=== PATIENT | female | born 1975 | race Caucasian/White ===

== ENCOUNTER 2016-09-01 19:43 | Emergency (ER) | payer OTHER ==
[~2016-09-01] VITALS: Ht 170.2 cm; Wt 65.8 kg
[2016-09-01 20:02] VITALS: BP 141/94
--- NOTE | 2016-09-01 20:23 | ED UPPER/LOWER EXTREMITY COMPL ---
History of Present Illness General Chief Complaint: Laceration Procedure Stated Complaint: L LEG LACERATION Source: patient Exam Limitations: no limitations Vital Signs & Intake/Output Vital Signs & Intake/Output Vital Signs Date Time Temp Pulse Resp B/P B/P Pulse O2 O2 Flow FiO2 Mean Ox Delivery Rate 09/01 2001 97.9 94 18 141/94 100 Room Air ED Intake and Output 09/02 0000 09/01 1200 Intake Total Output Total Balance Patient 145 lb Weight Weight Reported by Patient Measurement Method Allergies Coded Allergies: No Known Allergies (09/01/16) Reconcile Medications Cephalexin (Keflex) 500 MG CAPSULE 1 CAP PO TID wound prophylaxis Triage Note: PT TO ED FOR SMALL PUNCTURE/AVULSION TO L DUMONT. UNSURE OF LAST TETANUS. Triage Nurses Notes Reviewed? yes : No Patient currently breastfeeds: No HPI: Patient is a 41-year-old female presents complaining of puncture wound to her left anterior leg. Patient was using a lawnmower part of the lawnmower struck her pants and punctured her skin. Pants remained intact. Injury occurred this evening. Pain is a burning sensation currently mild, worsens with palpation. Patient is unsure of her most recent tetanus immunization. Denies numbness or decreased range of motion. (BRITNEY MOURA) Past History Travel History Traveled to [place] past 21 day No Medical History Any Pertinent Medical History? none Neurological: NONE EENT: NONE Cardiovascular: NONE Respiratory: NONE Gastrointestinal: NONE Hepatic: NONE Renal: NONE Musculoskeletal: NONE Psychiatric: NONE Endocrine: NONE Blood Disorders: NONE Cancer(s): NONE Surgical History Surgical History: non-contributory Psychosocial History What is your primary language Vietnamese Tobacco Use: Never used ETOH Use: denies use Illicit Drug Use: denies illicit drug use Family History Hx Contributory? No (BRITNEY MOURA) Review of Systems Review of Systems Constitutional: Reports: no symptoms. Musculoskeletal: Reports: see HPI. Skin: Reports: see HPI. Neurological/Psychological: Denies: numbness, paresthesia. Hematologic/Endocrine: Reports: bleeding (from wound, resolved). Immunological: Reports: no symptoms. (BRITNEY MOURA) Physical Exam Physical Exam General Appearance: well developed/nourished, alert, awake Head: atraumatic, normal appearance Eyes: Bilateral: normal appearance. Ears, Nose, Throat: hearing grossly normal Neck: normal inspection, supple, full range of motion Cardiovascular/Respiratory: no respiratory distress Back: normal inspection, vertebral tenderness Leg Left: 1.5 cm puncture wound to left mid anterior leg. Adipose tissue protruding from wound. No bony tenderness. Knee Left: normal range of motion, normal inspection Neurologic/Tendon: normal sensation, normal motor functions, normal tendon functions Skin: warm/dry (BRITNEY MOURA) Progress Differential Diagnosis: puncture wound, foreign body Plan of Care: Wound prepped with betadine. Irrigated with 300 ml of sterile water with a small amount of betadine. Xeroform dressing placed. (BRITNEY MOURA) Departure Departure Time of Disposition: 2040 Disposition: HOME OR SELF CARE Condition: Stable Clinical Impression Primary Impression: Puncture wound of leg excluding thigh Qualifiers: Encounter type: initial encounter Laterality: left Qualified Code: S81.832A - Puncture wound without foreign body, left lower leg, initial encounter Referrals: UNKNOWN (PCP/Family) Additional Instructions: Change the dressing daily. Return to the ER if pus from the wound, redness spreading from the wound, fevers, increasing pain or worsening of symptoms. Departure Forms: Customer Survey General Discharge Information Prescriptions: Current Visit Scripts Cephalexin (Keflex) 1 CAP PO TID #15 CAP (BRITNEY MOURA) PA/DIRECTOR CLINICAL RESEARCH Co-Sign Statement Statement: ED Attending supervision documentation- [] I saw and evaluated the patient. I have also reviewed all the pertinent lab results and diagnostic results. I agree with the findings and the plan of care as documented in the PA's/DIRECTOR CLINICAL RESEARCH's documentation. [x] I have reviewed the ED Record and agree with the PA's/DIRECTOR CLINICAL RESEARCH's documentation. [] Additions or exceptions (if any) to the PAs/DIRECTOR CLINICAL RESEARCH's note and plan are summarized below: [] (ADONIS DIAZ,LEODAN Banegas)
[2016-09-01] MEDS ORDERED: KEFLEX500 M1 PO (20:42)
== END 2016-09-01 20:46 ==
LOC: ERH 19:43
DX: S81.832A Puncture wound without foreign body, left lower leg, initial encounter (principal); W22.8XXA Striking against or struck by other objects, initial encounter; Y93.H9 Activity, other involving exterior property and land maintenance, building and construction; Y92.009 Unspecified place in unspecified non-institutional (private) residence as the place of occurrence of the external cause
CPT/HCPCS: 90471